=== PATIENT | male | born 1965 | race Caucasian/White ===

== ENCOUNTER 2021-01-26 21:45 | Emergency (ER) | payer BC ==
[~2021-01-26] VITALS: Ht 175.3 cm; Wt 77.1 kg
--- NOTE | ~2021-01-26 | EMS ---
[facility] [place] [address] EMS Patient Care Report Name: MELVIN GUSTAFSON Room: PRE [facility].R.#: [id number] Admission: Attend Phys: Discharge: Date of : 63 Report #: [id number] THIS REPORT FOR: //name// Report Transmitted: 01/26/2021 22:14 EMS Care Summary [facility] Incident [id number] @ 01/26/2021 20:46 Incident [address] [place] [address] Patient MELVIN GUSTAFSON Male, 55 Years 1965 Patient Address [address] [place] [address] Patient History Hypertension (HTN),Type 2 Diabetes, Patient Allergies No known allergies, Patient Medications Gabapentin, Metformin, Lisinopril, Chief Complaint Weakness Disposition Transported No Lights/[place] [facility] Reason Sick Person Transported To 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 PD on scene advised that the patient had come through the scales and they had requested to inspect the truck and trailer. They advised the patient [facility] [place] [address] EMS Patient Care Report Name: MELVIN GUSTAFSON Room: PRE [facility].#: [id number] Admission: Attend Phys: Discharge: Date of : 63 Report #: [id number] had become agitated and aggressive. They stated he then told them he was a diabetic and had forgotten his medications at home when he left from [place]. They advised the patient had calmed down and they had requested EMS. The patient was found to be Alert with a GCS of 15. The patient stepped down from his truck and was able to walk to the ambulance steps and sat down. EMS noted while walking the patient was shaking and seemed unsteady. The patient's advised he hadn't taken his medications since the morning prior. The patient's blood glucose was obtained and displayed "high" on the monitor. The patient was advised and he refused transport stating he had no way back to his truck. After some talking and speaking to his boss the patient was advised his boss would pay to get him back to his truck and he agreed to transport. The patient was taken to [facility]. Initial Vitals @21:17P: 102,R: 24,BP: 124/83,Pain: 0/10,GCS: 15,Glucose: -2,SpO2: 95,Revised Trauma: 12,SC Suspected: false @21:27P: 101,R: 24,BP: 116/71,Pain: 0/10,GCS: 15,Glucose: -2,SpO2: 95,Revised Trauma: 12, @21:38P: 100,R: 24,BP: 130/86,Pain: 0/10,GCS: 15,Glucose: -2,SpO2: 98,Revised Trauma: 12, Assessments @20:54MENTAL:Person Oriented,Time Oriented,Place Oriented,Event Oriented,SKIN:HEENT:Head/Face: No Abnormalities,LUNG SOUNDS:General: No Abnormalities,ABDOMEN:General: No Abnormalities,PELVIS//GI:No Abnormalities,EXTREMITIES:Left Arm: Abnormal Sensation,Right Leg: Abnormal Sensation,Right Leg: Weakness,Right Arm: Abnormal Sensation,Left Leg: Weakness,Left Leg: Abnormal Sensation,PULSE:Radial: 2+ Normal,NEURO:Abnormal Gait, Impression Diabetic Hyperglycemia Procedures @21:18Normal Saline (.9% NaCl) - Cold 1000cc (20 ga) Site: Forearm-LeftResponse: UnchangedSucceeded@21:05ALS AssessmentResponse: UnchangedSucceeded Timeline 20:46,Call Received 20:46,Dispatched 20:46,En Route 20:52,At Patient 20:52,Initial Responder On Scene 20:52,On Scene 21:05,ALS Assessment,Response: UnchangedSucceeded, [place] [address] EMS Patient Care Report Name: MELVIN GUSTAFSON Room: PRE M.R.#: [id number] Admission: Attend Phys: Discharge: Date of : 63 Report #: [id number] 21:17,Depart Scene 21:17,BP: 124/83 M,PULSE: 102,RR: 24 R,SPO2: 95 Ox,ETCO2: ,BG: -2,PAIN: 0,GCS: 15, 21:18,Normal Saline (.9% NaCl) - Cold 1000cc 20 ga Site: Forearm-Left,Response: UnchangedSucceeded, 21:27,BP: 116/71 M,PULSE: 101,RR: 24 R,SPO2: 95 Ox,ETCO2: ,BG: -2,PAIN: 0,GCS: 15, 21:38,BP: 130/86 M,PULSE: 100,RR: 24 R,SPO2: 98 Ox,ETCO2: ,BG: -2,PAIN: 0,GCS: 15, 21:40,At Destination 21:40,Transfer Patient 22:13,Call Closed 22:13,In District Disclaimer v1.1 Copyright 2020 [employer] This EMS Care Summary contains data elements from the applicable legal record (which may be displayed differently). It is designed to provide pertinent information for the following purposes: continuity of care, clinical quality, and state data reporting. The complete legal record is available to ED staff and administrators of the receiving hospital in [employer]'s Patient Tracker. All data is provided "as is."
[2021-01-26] MEDS ORDERED: ZESTRIL10 MG PO (21:50)
[2021-01-26] MEDS ORDERED: NEURONTIN300 MG PO (21:50)
[2021-01-26] MEDS ORDERED: METFORMIN HCL500 M3 PO ×2 (21:50→23:56)
[2021-01-26 22:19] LABS: ABSOLUTE BASOPHILS 0.1 thou/uL (0.0-0.2); ABSOLUTE EOSINOPHILS 0.1 thou/uL (0.0-0.7); ABSOLUTE LYMPHOCYTES 1.6 thou/uL (0.8-5.3); ABSOLUTE MONOCYTES 0.7 thou/uL (0.0-1.2); ABSOLUTE NEUTROPHILS 8.3 thou/uL (1.6-8.1); BE -1.1 mmol/L (-2 to +3); HEMATOCRIT 32.6 % (42.0-52.0); HEMOGLOBIN 11.5 gm/dL (14.0-18.0); MCH 32.4 pg (26.0-34.0); MCHC 35.4 g/dL (28.0-37.0); MCV 91.6 fL (80.0-100.0); MONOCYTES 6.6 %; MPV 8.1 fl. (7.2-11.1); NUCLEATED RBCS 0 /100WBC; PCO2 VENOUS 41.1 mmHg (41.0-51.0); PLATELET COUNT* 271 thou/uL (150-400); PO2 VENOUS 89.4 mmHg (35.0-45.0); POLYS 76.4 %; RBC 3.55 mil/uL (4.50-6.00); RDW-CV 13.1 % (10.5-14.5); WBC 10.9 thou/uL (4.0-11.0)
[2021-01-26 22:29] LABS: CALCIUM 8.4 mg/dL (8.5-10.1); POTASSIUM 3.6 mmol/L (3.5-5.1)
[2021-01-26 22:34] LABS: ALBUMIN 3.2 g/dL (3.4-5.0); TOTAL BILIRUBIN 0.6 mg/dL (<0.1-1.0); TOTAL PROTEIN 6.5 g/dL (6.4-8.2)
[2021-01-26 23:01] LABS: URINE BILIRUBIN NEGATIVE (Negative); URINE BLOOD TRACE (Negative); URINE CLARITY CLEAR; URINE COLOR YELLOW; URINE GLUCOSE-RANDOM 3+ (Negative); URINE KETONES NEGATIVE (Negative); URINE LEUKOCYTES-REFLEX NEGATIVE (Negative); URINE NITRITE-REFLEX NEGATIVE (Negative); URINE PROTEIN NEGATIVE (Negative); URINE SPECIFIC GRAVITY <= 1.005 (1.005-1.030); URINE UROBILINOGEN 0.2 E.U./dl (0.2-1.0)
[2021-01-26] MEDS ORDERED: NEURONTIN 300M300 M2 PO (23:56)
[2021-01-26] MEDS ORDERED: TEST STRIPS1 EACH SUBQ (23:56)
[2021-01-26] MEDS ORDERED: LISINOPRIL10 MG PO (23:56)
[2021-01-26] MEDS ORDERED: APIDRA SUBQ (23:56)
[2021-01-27 00:38] VITALS: BP 120/80
== END 2021-01-27 00:38 | disposition home or self-care (01) ==
LOC: M.ERS 21:45
PROVIDERS: Emergency Medicine
DX: E11.9 Type 2 diabetes mellitus without complications (principal); Z20.822 Contact with and (suspected) exposure to COVID-19; Z76.0 Encounter for issue of repeat prescription; I10 Essential (primary) hypertension; G89.29 Other chronic pain; Z79.84 Long term (current) use of oral hypoglycemic drugs